=== PATIENT | female | born 1995 | race Two or more races ===

== ENCOUNTER 2020-07-27 15:19 | Inpatient (IN) | payer OTHER ==
[2020-07-27] VITALS (10 sets, daily range): BP systolic 123–147; BP diastolic 62–93
[~2020-07-27] VITALS: Ht 165.1 cm; Wt 87.8 kg
[2020-07-27] MEDS ORDERED: PRENTAB9 PO (15:44)
[2020-07-27 16:55] LABS: BASO % 0.1 % (0.0-1.0); EOS % 0.3 % (0.0-3.0); HEMATOCRIT 34.7 % (36.0-47.0); LYMPH # 1.1 10^3/uL (1.5-5.0); LYMPH % 12.4 % (24.0-44.0); MEAN CORPUSCULAR HEMOGLOBIN 26.3 pg (27.0-33.0); MEAN CORPUSCULAR HGB CONC 31.7 g/dl (32.0-36.5); MONO # 0.5 10^3/uL (0.0-0.8); MONO % 5.1 % (0.0-5.0); NEUTROPHILS # 7.3 10^3/uL (1.5-8.5); NEUTROPHILS % 81.3 % (36.0-66.0); PLATELET COUNT, AUTOMATED 255 10^3/uL (150-450); RED BLOOD COUNT 4.18 10^6/uL (4.00-5.40)
--- NOTE | 2020-07-27 16:56 | HPEPDOC ---
Obstetrical History & Physical General Date of Admission Jul 27, 2020 at 16:19 History of Present Illness 24 yo at 39+3 weeks gestation by LMP of 25Oct2019 c/w 17+6 week US on presented to L&D with the complaint of a gush of clear fluid at ~1430 followed by continuous leakage ever since. She denies any bleeding or significant contraction pain. She endorses movement. is uncomplicated. Chief Complaint: LOF, term Information Provided By: Patient Age: 24 : 3 Term: 2 Pre-term: 0 Abortions: 0 Livin Care Care: Good Care Dating Final EDC: Jul 31, 2020 Final EDC for Daily Update: Jul 31, 2020 Final EDC by: LMP (LMP of 25Oct2019 set VIRY of [id number] which is c/w 17+6 week US on 26Feb2020) Antepartum Course Diagnos(e)s Overweight Past Medical History Past Obstetrical History : Past Obstetrical History: Multigravida (term X2. Pelvis proven to 6lbs, 7oz.) Complications: No PANTS PRESSER History: No pertinent history Past Medical History Medical History Denies Surgical History: [place] teeth Family History Significant Family History: No pertinent family hx Social History Marital Status: Family situation: Spouse/partner home Psychosocial History: No pertinent psych hx * Smoker: non-smoker Alcohol: Denies Drugs: denies Imunizations Tdap status: current Influenza Status: needs Medications Scheduled No.137/Iron/Folic Acd ( Vitamin Tablet) 1 Each Tablet, 1 TAB PO DAILY Physical Examination Physical Examination GENERAL: Alert and oriented times three. ABDOMEN: Gravid and non-tender to touch. FETUS: Is vertex (VTX) by sterile vaginal examination (SVE). EFW 3200 based on exam. EXTREMITIES: No edema. Chaperoned by L&D nurse Speculum exam: Pooling of fluid noted in vagina with significant leakage with valsalva. Swab obtained for ferning slide and nitrazine. Nitrazine and ferning slide both positive for amniotic fluid. Vital Signs/I&O Vital Signs Date Time Temp Pulse Resp B/P (MAP) Pulse Ox O2 Delivery O2 Flow Rate FiO2 07/27/20 15:40 98.2 100 18 128/77 (94) 98 Laboratory Data [facility] Laboratory Tests 2 07/27/20 16:25: Serology Scanned Report Hepatitis B Testing Urine Culture: No Growth Pertinent Laboratoy Data Blood Type: A+ RBC Antibody Screen: Negative HIV: Negative Hepatitis B: Negative Hepatitis C: Unknown Rapid Plasma Reagin: Nonreactive Rubella: Immune Varicella: Immune Chlamydia/Gonorrhea: Negative Group B Streptococcus: Negative Quad Screen Test: Unknown Cystic Fibrosis: Negative Glucose Tolerance Test: 103 Anatomy Ultrasound Placenta Location: Anterior (Anterior and right lateral placenta per report) Normal Anatomy: Yes Placenta Previa: No Steroid Therapy Steroid Therapy: No Vaginal Examination Dilation: 3 cm Effacement: 50% Station: -2 Cervical Consistency: Soft Cervical Position: Middle Presentation: Cephalic presentation Position: Vertex (occiput) Assessment Heart Rate (FHR): 130 Variability: Moderate Accelerations: Positive Decelerations: None Tocometer Contractions: Yes Frequency: irregular Duration: less than 60 seconds Strength: palpated as mild, palpated as moderate Assessment/Plan Assessment 24 yo at 39+3 weeks gestation presented to L&D with prelabor rupture of membranes. Plan Admit for expectant management of labor. If labor does not begin on its own within several hours, will start pitocin. Apply IV fluids. GBS negative. Regular diet. Patient may have epidural if/when desired. Anticipate . Dilshad Cervantes, DO Labor and Delivery Counseling Vaginal / Operative vaginal delivery / C section counseling We will deliver your baby through the vagina with possible assistance of forceps or vacuum device if needed for maternal or indications. Forceps and vacuum are devices that can assist with vaginal delivery when normal pushing efforts cannot achieve delivery on their own or when delivery is needed in an emergency for baby's well-being. Medications may be required to induce or augment (help) your labor in order to achieve a vaginal delivery. An episiotomy may be required to help your baby to delivery vaginally. You may also require repair of any lacerations or tears of your vagina or vulva that are caused by delivery. In some cases, emergencies can occur that require an emergency section delivery so quickly that there may not be enough time to stop and complete consent forms for section. Understand that if this occurs, your providers will discuss the need for a section with you before they proceed with surgery. section is the delivery of your baby through an incision in your abdomen. In some situations, section may be safer to mom and baby than continuing labor and is only performed when clinically indicated. Risks of vaginal delivery include but are not limited to: Bleeding, infection, injury to the vagina, pelvic structures, injury to baby, damage to the uterus, reactions to anesthesia, uterine rupture, risk of hysterectomy for life threatening bleeding, or . Medications used to induce or augment labor may increase your risk for infection, uterine tachysystole, uterine rupture, heart rate abnormalities, need for emergency delivery or possible hysterectomy, and hemorrhage. Additional risks for use of forceps and vacuum include: increased risk of perineal and vaginal lacerations, risk of urinary or bowel incontinence, increased risk of injury to baby with bruising, scratches, hematomas on the head, or intracranial bleeding. Ms. Covington appears to understand these risks and elects to proceed with delivery . She also consents to a blood transfusion if necessary. DO LYNN Nolan CHRISTOPHER J. DO Jul 27, 2020 16:56
[2020-07-27] MEDS ORDERED: LR 1,000 ML IV SCH (20:32)
--- NOTE | 2020-07-27 20:38 | IPNPDOC ---
Text Note Date of Service The patient was seen on 07/27/20. NOTE Ms. Covington is doing well. She only has mild cramping. No significant contr actions on toco. FHR is Cat I. Will start pitocin. Ms. Covington understands and agrees with plan of care. DO Billy VS,Luis Felipe, I+O VS, Luis Felipe, I+O Laboratory Tests 07/27/20 16:47 Vital Signs Date Time Temp Pulse Resp B/P (MAP) Pulse Ox O2 Delivery O2 Flow Rate FiO2 07/27/20 18:40 97.1 90 18 128/75 (92) 07/27/20 15:40 98 APOLINAR BAILEY DO Jul 27, 2020 20:38
[2020-07-27] MEDS ORDERED: OXYTOCIN DRIP 30 UNITS in IV 1 EA IV SCH (20:45)
[2020-07-27] MEDS ORDERED: FENTANYL 2MCG/ML ROPIVACAINE 0.2% IN 0.9% NACL 100ML IVBAG As Ordered ONE (23:31)
[2020-07-28] VITALS (18 sets, daily range): BP systolic 125–179; BP diastolic 67–101
--- NOTE | 2020-07-28 01:09 | IPNPDOC ---
Text Note Date of Service The patient was seen on 07/28/20. NOTE Patient in discomfort and requesting an epidural. Due to deck acuity, there has been a delay in getting her an epidural. Cervix: 5/C/-2 per RN exam. FHR Cat I when on the monitor. Patient is swaying by her bed and maternal heart rate is tracing on the monitor. Anticipate . DO Billy VS,Luis Felipe, I+O VS, [place], I+O Laboratory Tests 07/27/20 16:47 Vital Signs Date Time Temp Pulse Resp B/P (MAP) Pulse Ox O2 Delivery O2 Flow Rate FiO2 07/27/20 20:05 97.6 87 126/62 (83) 07/27/20 18:40 18 07/27/20 15:40 98 APOLINAR BAILEY DO Jul 28, 2020 01:09
[2020-07-28] MEDS ORDERED: OXYTOCIN DRIP 30 UNITS in IV 1 EA IV SCH (02:05)
--- NOTE | 2020-07-28 02:10 | DNPDOC ---
[facility] Delivery Note Delivery Note DATE OF DELIVERY: 28Jul2020 at ~0140 PREDELIVERY DIAGNOSIS: 39+4 weeks gestation and active labor POST DELIVERY DIAGNOSIS: Delivered. PROCEDURE: Spontaneous vaginal delivery [employer] TRAWL[employer] [place]: Dr. Cervantes ANESTHESIA: Neuraxial (epidural) ESTIMATED BLOOD LOSS: 100 mL. FINDINGS: 7 pound 3 ounce female , Scores 9/9 DELIVERY SUMMARY: Ms. Covington progressed rapidly after receiving her epidural. Cervical exam was C/C/+2 and she had a strong urge to push. With excellent effort after only three pushes, her baby delivered. Presentation was ART with restitution to ROT. The left anterior shoulder delivered with gentle guidance followed easily by the remainder of the body. The was dried and stimulated on the field and a bulb suction was used. The cried vigorously and was placed on the maternal abdomen. The three vessel cord was then clamped and cut by the FOB under my direction after appropriate time delay. Third stage was then completed with gentle traction on the cord and it was productive of an intact placenta. The uterus was firmed with massage and pitocin was administered IV bolus. Inspection of the cervix, vagina, labia, and perineum revealed a midline first degree vaginal floor laceration. This was repaired with 3-0 vicryl suture in the usual fashion. There was excellent cosmesis and hemostasis after the repair. The fundus was palpated again and was firm. Sponge, instrument, and needle counts were correct X2. Mother and infant stable when I left the room. DO LYNN Nolan CHRISTOPHER J. DO Jul 28, 2020 02:10
[2020-07-28] MEDS ORDERED: IBUPROFEN 800 MG TAB PO PRN (02:15)
[2020-07-28] MEDS ORDERED: ePHEDrine SULFATE 25 MG/5 ML(5MG/ML) SYRINGE IV PRN (02:15)
[2020-07-28] MEDS ORDERED: ACETAMINOPHEN TAB 650MG DOSE (2X325MG) PO PRN (02:15)
[2020-07-28] MEDS ORDERED: EPIDURAL/PCA KEYS XX PRN (02:15)
[2020-07-28] MEDS ORDERED: LACTATED RINGER'S 1000 ML IV PRN (02:15)
[2020-07-28] MEDS ORDERED: REFRIGERATOR IV KEYS XX PRN (02:15)
[2020-07-28] MEDS ORDERED: diphenhydrAMINE 50MG/ML VIAL (J1200) IV PRN (02:15)
[2020-07-28] MEDS ORDERED: BENZOCAINE 20% HEMORRHOIDAL OINTMENT 28GM TUBE TOP PRN (02:15)
[2020-07-28] MEDS ORDERED: ACETAMINOPHEN 500 MG TAB PO PRN (02:15)
[2020-07-28] MEDS ORDERED: NALOXONE INJ 0.4MG/1ML VIAL (J2310 PER 1MG) IV PRN (02:15)
[2020-07-28] MEDS ORDERED: EPIDURAL COMMENT XX SCH (02:15)
[2020-07-28] MEDS ORDERED: MEASLES,MUMPS,RUBELLA VACCINE INJ (MMR-II) (90707) SC SCH (02:15)
[2020-07-28] MEDS ORDERED: FENTANYL/ROPIVACAINE/NACL BAG 100 ML EPIDURAL SCH (02:15)
[2020-07-28] MEDS ORDERED: ONDANSETRON 4MG/2ML VIAL IV PRN (02:15)
[2020-07-28] MEDS ORDERED: RHOGAM 300 MCG (1500 IU) INJ (J2790) IM SCH (02:15)
[2020-07-28] MEDS ORDERED: DOCUSATE SODIUM 100MG CAPSULE PO PRN (02:15)
[2020-07-28] MEDS: PRENATAL VITAMINS CHEWABLE TABLET PO SCH (08:42)
[2020-07-28] MEDS: IBUPROFEN 600MG TAB PO PRN (15:36)
[2020-07-29] MEDS: IBUPROFEN 600MG TAB PO PRN (01:11)
[2020-07-29 05:42] VITALS: BP 119/55
--- NOTE | 2020-07-29 07:48 | DS.PDOC ---
Discharge Summary General Date of Admission Jul 27, 2020 at 16:19 Date of Discharge Jul 29, 2020 Discharge Summary HOSPITAL COURSE: Ms. Covington is a 24 yo G3 now P3 who underwent an uncomplicated in the brake engineer hours on 28Jul2020 after being admitted for active labor. Her course has been unremarkable. On her day of discharge she met all appropriate discharge criteria. She was ambulating, voiding, tolerating a regular diet, and had minimal lochia. DISCHARGE MEDICATIONS: Please see below. ALLERGIES: Please see below. PHYSICAL EXAMINATION ON DISCHARGE: VITAL SIGNS: Please see below. GENERAL: AAOX3, NAD ABDOMINAL EXAMINATION: Fundus firm at U-2. No fundal tenderness EXTREMITIES: No edema PSYCHIATRIC EXAMINATION: Affect appropriate LABORATORY DATA: Please see below. ACTIVITY: Pelvic rest for 6 weeks DIET: Regular DISCHARGE PLAN: Discharge home DISPOSITION: Discharge home on 29Jul2020 DISCHARGE INSTRUCTIONS: 1. Nothing in the vagina for 6 weeks ITEMS TO FOLLOWUP ON ON OUTPATIENT: 1. Call to schedule a visit for 6 weeks post delivery DISCHARGE CONDITION: Stable. TIME SPENT ON DISCHARGE: Greater than 20 minutes. Apolinar Cervantes DO Vital Signs/I&Os Vital Signs Date Time Temp Pulse Resp B/P (MAP) Pulse Ox O2 Delivery O2 Flow Rate FiO2 07/29/20 05:42 97.2 75 18 119/55 (76) 07/28/20 18:00 97 Room Air Discharge Medications Scheduled No.137/Iron/Folic Acd ( Vitamin Tablet) 1 Each Tablet, 1 TAB PO DAILY, (Reported) Allergies Coded Allergies: No Known Allergies (Unverified , 07/28/20) APOLINAR CERVANTES DO Jul 29, 2020 07:48
[2020-07-29] MEDS ORDERED: IBUP80TA PO (07:50)
[2020-07-29] MEDS ORDERED: ACET1TAB55 PO (07:50)
[2020-07-29] MEDS: PRENATAL VITAMINS CHEWABLE TABLET PO SCH (08:39)
== END 2020-07-29 11:23 | disposition home or self-care (01) | DRG 807 ==
LOC: M LDO 15:19 → M LDI 16:19 → M OBS 07-28 04:40
PROVIDERS: ADMIT Obstetrics & Gynecology; ATTEND Obstetrics & Gynecology
PROC: 10E0XZZ Delivery of Products of Conception, External Approach (ICD-10-PCS; principal; 2020-07-28)
PROC: 0HQ9XZZ Repair Perineum Skin, External Approach (ICD-10-PCS; 2020-07-28)
DX: O70.0 First degree perineal laceration during delivery (principal); Z37.0 Single live birth; Z3A.39 39 weeks gestation of pregnancy